=== PATIENT | male | born 1970 | race Caucasian/White ===

== ENCOUNTER 2021-07-03 12:40 | Inpatient (IN) | payer OTHER ==
[~2021-07-03] VITALS: Ht 162.6 cm; Wt 110.9 kg
[2021-07-03] MEDS ORDERED: VANCOMYCIN 1 GM in IV D5W 250 ML IV ONE (13:00)
[2021-07-03] MEDS ORDERED: PIPERACILLIN /TAZOBACTAM 3.375 G in IV D5W 50 ML IV ONE (13:00)
--- NOTE | 2021-07-03 13:06 | NUR ---
The patient bibs for c/o left foot pain, wound, and chest dull pain 9/10 ps. Noted left lower leg swelling and warm to touch. Also, noted small wound on the sole of the left foot Respiration regular and unlabored. Will continue to monitor the patient. Will continue to monitor the patient.
[2021-07-03 13:26] LABS: BASOPHILS % (AUTO) 0.1 % (0.0-2.0); EOSINOPHILS % (AUTO) 0.2 % (0.0-6.0); HEMATOCRIT 30 % (39-51); LYMPHOCYTES # (AUTO) 1.2 K/uL (0.8-4.8); LYMPHOCYTES % (AUTO) 9.1 % (20.0-44.0); MEAN CORPUSCULAR HGB CONC 34 g/dl (31.0-36.0); MEAN CORPUSCULAR VOLUME 86 fL (80-96); MONOCYTES # (AUTO) 1.3 K/uL (0.1-1.30); MONOCYTES % (AUTO) 9.4 % (2.0-12.0); NEUTROPHILS # (AUTO) 11.2 K/uL (1.8-8.9); NEUTROPHILS % (AUTO) 81.2 % (43.0-81.0); PLATELET COUNT (AUTO) 251 K/uL (150-450); RED BLOOD CELL COUNT(AUTO) 3.46 MIL/uL (4.5-6.0); WHITE BLOOD COUNT (AUTO) 13.8 K/uL (4.3-11.0)
[2021-07-03] MEDS ORDERED: ONDANSETRON HCL/PF 4 MG/2 ML VIAL ONE (13:40)
[2021-07-03] MEDS ORDERED: MORPHINE SULFATE INJ 4 MG/ML DISP.SYRIN ONE ×2 (13:40→18:29)
[2021-07-03] MEDS ORDERED: ONDANSETRON HCL/PF 4 MG/2 ML VIAL IV ONE (14:00)
[2021-07-03] MEDS ORDERED: MORPHINE SULFATE INJ 2 MG/ML DISP.SYRIN IV ONE ×2 (14:00→18:30)
--- NOTE | 2021-07-03 14:01 | NUR ---
COVID SWAB DONE AND SENT TO THE LAB
[2021-07-03] MEDS ORDERED: IV NS 0.9% 1,000 ML BAG IV ONE (14:30)
[2021-07-03 15:10] LABS: CALCIUM, SERUM 8.3 mg/dL (8.5-10.1); CARBON DIOXIDE 27 mmol/L (21-32); CHLORIDE 94 mmol/L (98-107); CREATININE 1.6 mg/dL (0.6-1.3); GLUCOSE 319 mg/dL (74-106); POTASSIUM 4.1 mmol/L (3.5-5.1); SODIUM SERUM 129 mmol/L (136-145); UREA NITROGEN, BLOOD 36 mg/dL (7-18)
[2021-07-03 15:17] LABS: ALANINE AMINOTRANSFERASE 37 U/L (12-78); ALBUMIN 3.1 g/dL (3.4-5.0); ALKALINE PHOSPHATASE 112 U/L (46-116); ASPARTATE AMINOTRANSFERASE 15 U/L (15-37); BILIRUBIN,DIRECT 0.1 mg/dL (0.0-0.2); BILIRUBIN,TOTAL 0.4 mg/dL (0.2-1.0); TOTAL PROTEIN, SERUM 7.4 g/dL (6.4-8.2)
--- NOTE | 2021-07-03 18:08 | NUR ---
NURSING SUP GAVE [phone].
--- NOTE | 2021-07-03 18:28 | NUR ---
REPORT GIVEN TO NURSE CHASE
--- NOTE | 2021-07-03 18:34 | NUR ---
THE PATIENT IS TRANSFERED TO ROOM 326 IN STABLE CONDITION AND PER POLICY
[2021-07-03] MEDS ORDERED: *INSULIN REGULAR(HUMULIN R)HUM 100 UNIT/ML VIAL SQ PRN (19:00)
[2021-07-03] MEDS ORDERED: ACETAMINOPHEN 325 MG TABLET PO PRN (19:00)
[2021-07-03] MEDS ORDERED: MAGNESIUM HYDROXIDE 30 ML UDC PO PRN (19:00)
[2021-07-03] MEDS ORDERED: MAG HYDROX/AL HYDROX/SIMETH 30 ML UDC PO PRN (19:00)
[2021-07-03] MEDS ORDERED: ONDANSETRON HCL/PF 4 MG/2 ML VIAL IVP PRN (19:00)
[2021-07-03] MEDS ORDERED: Z GUARD REMEDY 2 OZ OINT TP PRN (19:00)
[2021-07-03] MEDS ORDERED: MORPHINE SULFATE INJ 2 MG/ML DISP.SYRIN IV PRN (19:00)
[2021-07-03] MEDS ORDERED: DEXTROSE 50%-WATER 50 ML DISP.SYRIN IV PRN (19:00)
[2021-07-03] MEDS ORDERED: IV NS 0.9% 1,000 ML IV PRN (19:00)
[2021-07-03] MEDS: CEFTRIAXONE 1 G in IV D5W 50 ML IV SCH (19:17)
--- NOTE | 2021-07-03 19:30 | NUR ---
MS RN OPENING NOTES PATIENT SEEN AWAKE RESTING IN BED. PATIENT'S ALERT AND ORIENTED X4. PATIENT'S STABLE ON ROOM AIR. IV ACCESS NOTED IN LAC G#20 WHICH IS RUNNING NS AT 75CC/HR. PATIENT'S IN NO ACUTE DISTRESS AT THIS TIME. SAFETY MEASURES IN PLACE: BED LOCKED, SIDE RAILS UP X2, AND CALL LIGHT WITHIN REACH OF THE PATIENT. WILL CONTINUE TO MONITOR THE PATIENT.
[2021-07-03 20:00] VITALS: BP 136/63
[2021-07-03] MEDS ORDERED: MENTHOL/CETYLPYRD (CEPACOL) 1 LOZ LOZENGE PO PRN (21:30)
[2021-07-03] MEDS: GUAIFENESIN/D-METHORPHAN HB 5 ML UDC PO PRN (22:05)
--- NOTE | 2021-07-03 22:14 | NUR ---
MS ULLOA NOTES PATIENT'S HS BLOOD SUGAR WAS 361MG/DL. COVERAGE OF 20 UNITS OF REGULAR INSULIN WAS GIVEN. WILL CONTINUE TO MONITOR THE PATIENT. Addendum: 07/04/21 at 0004 by KARLY YUAN RN DISREGARD THE LAST NOTED MS ULLOA NOTES PATIENT'S HS BLOOD SUGAR WAS 361MG/DL. COVERAGE OF 10 UNITS OF REGULAR INSULIN WAS GIVEN. WILL CONTINUE TO MONITOR THE PATIENT.
[2021-07-03] MEDS: INSULIN REGULAR, HUMAN 100 UNIT/ML 3 ML VIAL SQ PRN (22:36)
[2021-07-03] MEDS: BLOOD SUGAR DIAGNOSTIC 1 EACH STRIP IN SCH (22:52)
[2021-07-04] MEDS: VANCOMYCIN 1 GM in IV D5W 250ml IV SCH ×2 (01:23→13:46)
[2021-07-04] MEDS: GUAIFENESIN/D-METHORPHAN HB 5 ML UDC PO PRN (02:30)
[2021-07-04] MEDS: INSULIN REGULAR, HUMAN 100 UNIT/ML 3 ML VIAL SQ PRN ×4 (06:13→18:30)
[2021-07-04] MEDS: BLOOD SUGAR DIAGNOSTIC 1 EACH STRIP IN SCH ×4 (06:59→21:34)
--- NOTE | 2021-07-04 07:22 | NUR ---
MS RN CLOSING NOTES PATIENT SEEN SITTING ON A WHEELCHAIR IN THE ROOM. PATIENT'S ALERT AND ORIENTED X4. PATIENT'S STABLE ON ROOM AIR. BLOOD SUGAR BEFORE BREAKFAST WAS 343MG/DL. REGULAR INSULIN COVERAGE WAS GIVEN. IV ACCESS NOTED IN LAC G#20 WHICH IS INTACT, PATENT, AND FLUSHING WELL. PATIENT'S IN NO ACUTE DISTRESS AT THIS TIME. SAFETY MEASURES IN PLACE: BED LOCKED, SIDE RAILS UP X2, AND CALL LIGHT WITHIN REACH OF THE PATIENT. ENDORSED CARE TO THE DAY SHIFT NURSE.
--- NOTE | 2021-07-04 08:00 | NUR ---
RN MORNING NOTE PT RECEIVED IN BED WITH HEAD OF BED SEMI FOWLERS. PT IS ON RA 96% WITH NO SIGNS OF LABORED BREATHING OR RESPIRATORY DISRERSS. PT IS A/OX4. PT HAS LAC 20G ACCESS, PT IS CONTINENT WITH BRP AND ON CONSISTENT CARB DIET, BED IS LOCKED IN LOWEST POSITION WITH BED RAILS UP X2, ALL HOSPITAL SAFETY MEASURES ARE IN PLACE AND WILL CONTINUE TO MONITOR THIS SHIFT.
--- NOTE | 2021-07-04 08:27 | NUR ---
WOUND CARE CONSULT: PT PRESENTS WITH PURULENT NECROTIC WOUND TO LEFT PLANTAR FOOT, PRESENT ON ADMISSION. DORSAL FOOT IS RED AND SWOLLEN. DR BERGERON NOTIFIED OF URGENT CONSULT REQUEST. IN AGREEMENT WITH PLAN OF CARE. CURRENT WILMAR SCORE IS 20.
[2021-07-04 08:42] VITALS: BP 130/72
[2021-07-04 08:51] LABS: BASOPHILS % (AUTO) 0.2 % (0.0-2.0); EOSINOPHILS % (AUTO) 0.2 % (0.0-6.0); HEMATOCRIT 30 % (39-51); HEMOGLOBIN 9.9 g/dL (13.5-17.5); LYMPHOCYTES # (AUTO) 1.4 K/uL (0.8-4.8); LYMPHOCYTES % (AUTO) 10.6 % (20.0-44.0); MEAN CORPUSCULAR HGB CONC 34 g/dl (31.0-36.0); MEAN CORPUSCULAR VOLUME 87 fL (80-96); MONOCYTES # (AUTO) 1.1 K/uL (0.1-1.30); MONOCYTES % (AUTO) 7.9 % (2.0-12.0); NEUTROPHILS # (AUTO) 10.9 K/uL (1.8-8.9); NEUTROPHILS % (AUTO) 81.1 % (43.0-81.0); PLATELET COUNT (AUTO) 254 K/uL (150-450); RED BLOOD CELL COUNT(AUTO) 3.42 MIL/uL (4.5-6.0); WHITE BLOOD COUNT (AUTO) 13.4 K/uL (4.3-11.0)
[2021-07-04 09:46] LABS: BILIRUBIN,TOTAL 0.5 mg/dL (0.2-1.0); CREATININE 2.1 mg/dL (0.6-1.3); MAGNESIUM 2.3 mg/dL (1.8-2.4); PHOSPHORUS 3.7 mg/dL (2.5-4.9); POTASSIUM 4.5 mmol/L (3.5-5.1); TOTAL PROTEIN, SERUM 7.7 g/dL (6.4-8.2)
--- NOTE | 2021-07-04 09:55 | NUR ---
RN NOTE RECEIVED CRITICAL LAB, GLUCOSE: [phone], ADMINISTERED 16 UNITS PER AGGRESSIVE SLIDING SCALE
--- NOTE | 2021-07-04 10:00 | NUR ---
RN NOTE PER DR. ESPINOZA, INCREASE PT PAIN MED FROM 1MG TO 2MG Q4HR
[2021-07-04] MEDS ORDERED: ASPI-1420 PO (10:46)
[2021-07-04] MEDS ORDERED: SITA1TAB6 PO (10:46)
[2021-07-04] MEDS ORDERED: OLME1TAB88 PO (10:46)
[2021-07-04] MEDS ORDERED: INSU100I4 SQ (10:46)
[2021-07-04] MEDS: MORPHINE SULFATE INJ 2 MG/ML DISP.SYRIN IV PRN ×2 (11:55→21:48)
--- NOTE | 2021-07-04 16:11 | NUR ---
RN NOTE PT RETURNED FROM MRI AND REPORTED SOB AND FULTON. VS TAKEN: 139/68 O2 87% ON RA, HR 110, T 99.1. INFORMED DR. ESPINOZA AND PLACED PT ON SIMPLE MASK AT 9L AND TITRATED DOWN TO 4L AND O2 SAT 97%. PER DR. ESPINOZA, ABGS, CXR, AND LABS ORDERED. PT IS STABLE, BUT ANXIOUS. WILL CONTINUE TO MONITOR AND UPDATE MD NEEDED.
[2021-07-04 16:39] LABS: ABG BASE EXCESS -4.4 mmol/L; ABG OXYGEN SATURATION 88.1 % (92.0-98.5); ABG PCO2 34.1 mmHg (35.0-45.0); ABG PH 7.386 (7.350-7.450); ABG PO2 55.4 mmHg (75.0-100.0); AaDO2 161.7 mmHg; COHb 0.3 % (0.5-1.5); O2Hb 87.8 % (94.0-97.0); SITE, ABG Left Radial; VENT MODE, BG Nasal Cannula
[2021-07-04] MEDS ORDERED: FUROSEMIDE 40 MG/4 ML VIAL IV ONE (17:30)
[2021-07-04 18:30] LABS: IRON, SERUM 12 ug/dl (50-175); TOTAL IRON BINDING CAPACITY 208 ug/dl (250-450)
--- NOTE | 2021-07-04 19:49 | NUR ---
RN CLOSING NOTE PT IS SITTING AT BEDSIDE IN WHEELCHAIR ACCOMPANIED BY FAMILY FRIEND AND IS COMFORTABLE WITH NC 4L AND TOLERATING WELL. NO SIGNS OF LABORED BREATHING OR RESPIRATORY DISTRESS AT THIS TIME. PT IS A/OX4. STILL WAITING ON RESULTS FROM CXR TAKEN THIS EVENING. PT HAS LAC 20G ACCESS, PT ADMINISTERED LASIX 40MG, ALL HOSPITAL SAFETY MEASURES ARE IN PLACE AND WILL PASS ALL INFORMATION TO ENVIRONMENTAL SCIENCE INSTRUCTOR NURSE FOR [facility].
[2021-07-04 20:00] VITALS: BP 120/78
[2021-07-04] MEDS: CEFTRIAXONE 1 G in IV D5W 50 ML IV SCH (20:54)
[2021-07-04] MEDS: HEPARIN SODIUM, PORCINE 5000 UNITS/1 ML VIAL SQ SCH (21:01)
[2021-07-04] MEDS ORDERED: INSULIN GLARGINE, 100 UNIT/ML CARTRIDGE SQ SCH (22:00)
[2021-07-05] MEDS ORDERED: FUROSEMIDE 40 MG/4 ML VIAL IV ONE (01:00)
[2021-07-05] MEDS: VANCOMYCIN 1 GM in IV D5W 250ml IV SCH ×2 (01:52→12:52)
[2021-07-05 02:00] VITALS: BP 144/82
[2021-07-05 04:00] VITALS: BP 141/87
[2021-07-05 04:02] VITALS: BP 141/87
--- NOTE | 2021-07-05 05:18 | NUR ---
CLOSING NOTES: PATIENT AWAKE MOST OF THE NIGHT SITTING IN A CHAIR AND DOZING 02 N/C AT 5 LITERS ANS SATS 100% ABD ROUND SOFT BS = STATED HE HASN'T HAD A BM FOR DAYS HE WAS RESTLESS AT TIMES IN THE CHAIR AND OUT OF THE CHAIR PULLING OUT HIS iv THE IV S/L WAS RESTARTED d/t RECEIVING IV LASIX AND VANCO ATB LAST NIGHTS VANCO TROUGH WAS 12 LAST NIGHT AT MIDNIGHT HE STATED HE COULD NOT BREATH CALLED [facility] AND GAVE HIM LASIX 40 [place] [address] HE TELLS ME HE CAN'T BREATH AND HE CAN'T URINATES TEXT MADE TO [facility] AND THE WHEN NO MESSAGE IN RETURN CALLED HER AT 05;15 . PENDING CALL BACK.
--- NOTE | 2021-07-05 06:11 | NUR ---
CALL RETURNED BY [facility] WITH PATIENT HAVING A NAVARRO PLACED, EXPLAINED TO HER HE WOULDN'T COOPERATE WITH ME DOING THE BLADDER SCANNER WOULD NOT GET IN BED PATIENT STATES "i CAN't BREATH" LUNGS VIA AUCULTATION CLEAR DIMINISHED SATS 100% ON 5 LITERS 02 EXPLAINED TO HIM ABOUT THE FOLEUY CATHETER TO BE PLACED AND THAT I WOULD BE GENTLE AND SLOW AND THEN HE CAN GET OOB AND SIT IN A CHAIR BUT THAT HE WOUKLD FEEL BETTER GETTIMNG THAT URINE OUT. HE STATED HE FEELS BLOATED HIS ABD IS ROUND AND SOFT BS+ VIA AUSCULTATION WILL LET HIM THINK ABOUT HAVING A NAVARRO PLACED
[2021-07-05] MEDS: INSULIN REGULAR, HUMAN 100 UNIT/ML 3 ML VIAL SQ PRN ×5 (06:43→16:58)
[2021-07-05 07:09] LABS: CALCIUM, SERUM 8.3 mg/dL (8.5-10.1); POTASSIUM 5.5 mmol/L (3.5-5.1)
[2021-07-05] MEDS: BLOOD SUGAR DIAGNOSTIC 1 EACH STRIP IN SCH ×3 (07:43→17:03)
--- NOTE | 2021-07-05 07:45 | NUR ---
RN MS OPENING NOTE Patient sitting on chair, A/O x 4. On O2 at 5LPM via NC, no SOB or s/s of distress noted. IV access on Right hand #18G, SL; intact and patent. Dressing on Left foot clean, dry, and intact. Safety precautions in place: bed in low, locked position; siderails up x 2; call light within reach. Will continue to monitor.
--- NOTE | 2021-07-05 08:00 | NUR ---
LAILA BOLES FROM THE LAB CALLED REGARDING CRITICAL VALUE, GLUCOSE 412. MARTHA LEON NP, WAS INFORMED.
--- NOTE | 2021-07-05 08:08 | NUR ---
RN NOTE MARTHA LEON NP, ORDERED TO GIVE ADDITIONAL 20 UNITS AND TO RECHECK BLOOD SUGAR AFTER 30 MINS.
[2021-07-05 08:38] VITALS: BP 142/84
--- NOTE | 2021-07-05 08:54 | NUR ---
RN NOTE BLOOD SUGAR RESULT AFTER 30 MINS WAS 405. RECHECKED AGAIN AND IT WENT HIGH 440. MARTHA LEON NP, IS MADE AWARE AND ORDERED ADDITIONAL 20 UNITS OF REGULAR INSULIN. READ BACK COMPLETED.
[2021-07-05] MEDS: HEPARIN SODIUM, PORCINE 5000 UNITS/1 ML VIAL SQ SCH (08:57)
[2021-07-05] MEDS ORDERED: DAKINS QUARTER STRENGTH (0.125%) 480 ML BOTTLE TOP SCH (09:00)
[2021-07-05] MEDS ORDERED: ASPIRIN EC 81 MG TABLET.DR PO SCH (09:00)
[2021-07-05] MEDS ORDERED: IPRATROPIUM NEB FS 0.5 MG/2.5 ML AMPUL.NEB NEB PRN (12:30)
[2021-07-05] MEDS ORDERED: ALBUTEROL FS 2.5 MG/0.5 ML VIAL.NEB NEB PRN (12:30)
[2021-07-05] MEDS ORDERED: LINAGLIPTIN 5 MG TABLET PO SCH (13:30)
[2021-07-05] MEDS ORDERED: SOD FERRIC GLUC 125 MG in IV NS 0.9% 100 ML IV SCH (14:00)
[2021-07-05] MEDS: CARVEDILOL 3.125 MG TABLET PO SCH ×2 (15:11→17:02)
[2021-07-05 16:26] VITALS: BP 121/62
[2021-07-05 17:02] VITALS: BP 121/69
[2021-07-05] MEDS: CEFTRIAXONE 1 G in IV D5W 50 ML IV SCH (17:20)
--- NOTE | 2021-07-05 18:51 | NUR ---
MS RN CLOSING NOTE Patient sitting on chair. A/O x 4, able to make needs known. On O2 at 5LPM, no SOB or s/s of distress noted. IV access on Right hand #18G intact, patent, and infusing well. Wound care done on Left foot, as ordered. All needs attended to. Due meds given. Safety precautions maintained: bed in low, locked position; siderails up x 2; call light within reach. Will endorse to shift leader nurse for [facility].
--- NOTE | 2021-07-05 20:19 | NUR ---
MS RN OPENING NOTES RECEIVED PT IN WHEELCHAIR, WITH FAMILY AT BEDSIDE. AOx4. ABLE TO MAKE NEEDS KNOWN. ON RA AND TOLERATING WELL. NO SOB NOTED. NO S/SX OF RESPIRATORY DISTRESS NOTED. IV ACCESS IN R HAND #18. IV IS INTACT, PATENT AND FLUSHING WELL. ENTERED ROOM @ 194 AND PATIENT AND FAMILY EXPRESSED DESIRE TO LEAVE AMA. EDUCATED PATIENT AND FAMILY ON RISKS AND BENEFITS OF LEAVING AMA. PATIENT AND FAMILY STATED THEY WERE OKAY WITH THAT. MD CHAIN CARRIER, BRITTNI, AND CHARGE NURSE, PRECIOUS GREWAL. REMOVED IV AND WRISTBAND. PATIENT LEFT WITH FAMILY MEMBERS VIA WHEELCHAIR @1999.
[2021-07-05] MEDS ORDERED: INSULIN GLARGINE, 100 UNIT/ML CARTRIDGE SQ SCH (22:00)
== END 2021-07-05 20:00 | disposition left against medical advice (07) | DRG 166 ==
LOC: ER 12:40 → TELE 18:10 → MED 19:28
PROVIDERS: ADMIT Internal Medicine; ATTEND Registered Nurse
PROC: 0JBR0ZZ Excision of Left Foot Subcutaneous Tissue and Fascia, Open Approach (ICD-10-PCS; principal; 2021-07-04)
DX: J15.9 Unspecified bacterial pneumonia (principal); N17.0 Acute kidney failure with tubular necrosis; I50.23 Acute on chronic systolic (congestive) heart failure; L03.116 Cellulitis of left lower limb; I13.0 Hypertensive heart and chronic kidney disease with heart failure and stage 1 through stage 4 chronic kidney disease, or unspecified chronic kidney disease; M86.172 Other acute osteomyelitis, left ankle and foot; Z68.41 Body mass index [BMI] 40.0-44.9, adult; L02.612 Cutaneous abscess of left foot; E87.1 Hypo-osmolality and hyponatremia; E11.621 Type 2 diabetes mellitus with foot ulcer; E11.622 Type 2 diabetes mellitus with other skin ulcer; E11.65 Type 2 diabetes mellitus with hyperglycemia; L97.529 Non-pressure chronic ulcer of other part of left foot with unspecified severity; Z20.822 Contact with and (suspected) exposure to COVID-19; N18.9 Chronic kidney disease, unspecified; E11.22 Type 2 diabetes mellitus with diabetic chronic kidney disease; E11.69 Type 2 diabetes mellitus with other specified complication; E11.40 Type 2 diabetes mellitus with diabetic neuropathy, unspecified; E66.01 Morbid (severe) obesity due to excess calories; I25.10 Atherosclerotic heart disease of native coronary artery without angina pectoris; Z79.82 Long term (current) use of aspirin; Z79.4 Long term (current) use of insulin; Z91.14 Patient's other noncompliance with medication regimen
CPT/HCPCS: 36415; 36600; 71045-TC; 73630-TC; 73718-TC; 76770-TC; 80048-TC; 80053-TC; 80076-TC; 80202-TC; 82962-TC; 83540-TC; 83605-TC; 83735-TC; 83880; 84100-TC; 85025-TC; 85730-TC; 87040-TC; 87070-TC; 87081-TC; 93307-TC; 93971-TC; A6403; C9803; G0378; J0696; J1644; J1815; J1940; J2270; J2405; J2543; J2916; J3370; J7030; J7050; J7060